=== PATIENT | female | born 1950 | race Caucasian/White ===

== ENCOUNTER 2019-09-10 05:57 | Day surgery (SDC) | payer MEDICARE, OTHER ==
[2019-09-09 10:15] VITALS: BMI 28.3
[2019-09-10] MEDS ORDERED: EPINEPHrine 0.3 MG in Ophthalmic Irrigation Solution 500 ML IRR SCH (06:00)
[2019-09-10] MEDS ORDERED: PROPOFOL 20 ML ONE (06:48)
[2019-09-10] MEDS ORDERED: Midazolam HCl 2 mg/2 ml Vial ONE (06:48)
[2019-09-10] MEDS ORDERED: Fentanyl 100 MCG/2 ML VIAL ONE (06:48)
[2019-09-10] MEDS ORDERED: Cyclopentolate 1% Opth Drop 2 ML BOT ONE (06:59)
[2019-09-10] MEDS ORDERED: Phenylephrine 2.5% Ophth Soln 5 ML BOT ONE (06:59)
--- NOTE | 2019-09-10 09:40 | OP ---
DATE OF PROCEDURE: 09/10/2019 PREOPERATIVE DIAGNOSIS: Vitreous membranes, right eye. POSTOPERATIVE DIAGNOSIS: Vitreous membranes, right eye. PROCEDURES PERFORMED: Pars plana vitrectomy, membrane peel, right eye. ANESTHESIA: Local with monitored anesthesia care. DESCRIPTION OF PROCEDURE: The patient was identified in the preoperative holding area. Appropriate informed consent for the planned surgical procedure on the right eye had been obtained. The patient was prepped and draped in usual sterile manner for ophthalmic surgery on the right eye. Lid speculum was placed in the right eye. A 27-gauge trocar was placed in conjunctiva and sclera superotemporally, inferotemporally, and supranasally. Infusion line was place inferotemporally. Light pipe and vitreous cutter were inserted into the eye. Core vitrectomy was performed. Vitreous membranes were peeled out in the retinal periphery and trimmed flat using wide field viewing system. Indirect ophthalmoscopy was used to examine the retina 360 degrees. No holes, breaks, or tears were identified. Trocars were removed. Eye was noted to retain pressure well. Retrobulbar Kenalog and subconjunctival Ancef were placed. Antibiotic ointment was placed. The eye was patched and shielded. The patient was taken to postoperative recovery unit in good condition, having suffered no immediate perioperative complications. The patient was instructed to keep patch and shield on, avoid lifting or bending, and followup appointment with Dr. Cisneros. Job ID: [id number]
[2019-09-10] MEDS ORDERED: Lidocaine 4% PF 5 ML AMP ONE (13:38)
[2019-09-10] MEDS ORDERED: PROPOFOL 200 MG/20 ML VIAL ONE (13:38)
[2019-09-10] MEDS ORDERED: Lidocaine 1% PF 5 ML VIAL ONE (13:38)
[2019-09-10] MEDS ORDERED: Bupivacaine PF 0.75% SDV 10 ML ONE (13:38)
[2019-09-10] MEDS ORDERED: Triamcinolone 40 MG/ML VIAL ONE (13:38)
[2019-09-10] MEDS ORDERED: Maxitrol 0.1% Opth Oint 3.5 GM TUBE ONE (13:38)
[2019-09-10] MEDS ORDERED: CEFAZOLIN 1 GM VIAL ONE (13:38)
== END 2019-09-10 09:07 | disposition home or self-care (01) ==
LOC: SDC 05:57
PROVIDERS: ATTEND Ophthalmology Retina Specialist
PROC: 08T43ZZ Resection of Right Vitreous, Percutaneous Approach (ICD-10-PCS; principal; 2019-09-10)
PROC: 08NE3ZZ Release Right Retina, Percutaneous Approach (ICD-10-PCS; 2019-09-10)
DX: H43.311 Vitreous membranes and strands, right eye (principal); E78.5 Hyperlipidemia, unspecified; Z79.899 Other long term (current) drug therapy
CPT/HCPCS: J0171; J0690; J2001; J2250; J2704; J3010; J3301; J3490